=== PATIENT | male | born 1980 | race Caucasian/White ===

== ENCOUNTER 2016-06-19 22:29 | Emergency (ER) | payer BC ==
[~2016-06-19 22:29] MED LIST: TYLENOL DPS325 MG PO
--- NOTE | 2016-06-20 05:57 | ER ---
ADMIT: 06/19/2016 RM/LOC: ER [facility] MR#: [id number] [address] [facility] [id number] ANNE SOMMER [address] [place] [address] Emergency Room Report SEX: M AGE: 36 : 1980 DATE: 06/19/2016 The patient is a 36-year-old male in police custody for outstanding warrants, alcoholic intoxication. Denies any prior history of alcohol withdrawal seizures or any other medical problems. Released in police custody. Raffy Garcia MD/ alyssa JOB #: [id number] CC: Raffy Garcia MD, Attending Physician Jairo Yan MD, Family Physician Jairo Yan MD
== END 2016-06-19 22:45 | disposition home or self-care (01) ==
LOC: ER 22:29
DX: F10.129 Alcohol abuse with intoxication, unspecified (principal)